=== PATIENT | female | born 1965 | race Caucasian/White ===

== ENCOUNTER 2022-02-18 10:54 | Emergency (ER) | payer MEDICAID, SELFPAY ==
[2022-02-18 11:04] VITALS: BP 112/67; PULSE 90; RESP 16; TEMP 36.6; O2SAT 98; BMI 20.2
--- NOTE | 2022-02-18 11:36 | XR_ITS ---
WS: [id number] Right wrist, 3 views, 02/18/2022 Clinical Data: fall, pAIN Comparison: None. Findings: There is a minimally impacted and dorsally displaced fracture of the distal right radius. The distal right ulna is intact. The carpal bones are normal. There is soft tissue swelling about the right wris t. XR/XR wrist RT min 3V* [id number] Impression: Fracture distal right radius.
--- NOTE | 2022-02-18 11:37 | W.ED.UPPEXIN ---
HPI - Extremity Injury (Upper) General: Chief Complaint: Extremity Injury, Upper Stated Complaint: right hand injury Time Seen by Provider: 02/18/22 11:24 Source: patient Mode of arrival: ambulatory Limitations: no limitations History of Present Illness: Patient is a 56-year-old female presents to ED today for evaluation of right wrist injury. Patient tells me earlier today she was on a log pile when one of the logs rolled causing her to fall backwards onto her right wrist and hand. Patient tells me she is having localized wrist tenderness. She denies any other injuries sustained during the fall. Patient denies striking her head or LOC. She has no neck or back pain. She has been ambulatory since the fall without difficulty. MD complaint: injury to: right and wrist Onset (ago): hour(s) Other Extremity Injury: Right: wrist Other injuries: none Place: home Severity: moderate Relieving factors: immobilization Exacerbating factors: movement of extremity Context: fall Associated symptoms: Reports no associated symptoms; Denies neck pain Review of Systems Musc: Reports: joint pain (R wrist); Denies: neck pain, back pain, extremity pain or extremity swelling Skin/Breast: Reports: other (denies abrasions/lacerations) Neuro: Denies: headache(s) Physical Exam Const: COMMON NORMALS: no acute distress, average body habitus, patient oriented x3, no limitations, healthy appearing, alert and well nourished Extremity: COMMON NORMALS: capillary refill normal GENERAL: Yes normal exam except as noted RIGHT UPPER EXTREMITY: Yes wrist Right wrist: Yes palpation (TTP distal radius), Yes ROM (limited secondary to pain) and Yes neurovascular exam (normal) Neuro: COMMON NORMALS: patient oriented x3 SENSORIUM/ORIENTATION: Yes alert Course Vital Signs: Vital signs: Vital Signs Temperature 97.8 F 02/18/22 11:04 Pulse Rate 90 02/18/22 11:04 Respiratory Rate 16 02/18/22 11:04 Blood Pressure 112/67 02/18/22 11:04 Pulse Oximetry 98 02/18/22 11:04 Oxygen Delivery Me thod 02/18/22 11:04 MDM - Extremity Injury (Upper) Medical Decision Making Patient with a distal radial fracture. NV intact. Will place in sugar tong splint and have her follow up with orthopedics. Return to ED precautions given. Discharge Plan Discharge Patient Disposition: Home Clinical Impression: Distal radial fracture Qualifiers: Encounter type: initial encounter Fracture type: closed Fracture morphology: unspecified fracture morphology Laterality: right Qualified Code(s): S52.501A - Unspecified fracture of the lower end of right radius, initial encounter for closed fracture Condition: Stable Prescriptions: New hydrocodone-acetaminophen 5-325 mg tablet 1 tab PO Q6H PRN (Reason: pain) Qty: 14 0RF Discharge Orders: Discharge ED (Routine); Ordered 02/18/22 Ordered By: Asya Klein Referrals: Camille Munroe DO [Primary Care Provider] - Patient Instructions: Wrist Fracture in Adults (ED), Opioid Safety, Pain Management Activity Restrictions/Additional Instructions: Case management should contact you shortly to set you up with your follow-up orthopedic appointment. Coding Level of Care Code ED Director Non Profit for Mathew Mckoy Exam Expanded Problem Focused
--- NOTE | 2022-02-18 14:16 | DCPLANNER ---
Addendum entered by Tammy Zavaleta 02/22/22 13:44: Patient had a follow up appointment scheduled with ortho - patient did attend appointment. Original Note: manager statistical programming had message to schedule a follow up appointment for patient with ortho. manager statistical programming sent patients information to the front office staff at ortho. Patients information will be printed and reviewed. Clinic will call patient with appointment information.
== END 2022-02-18 12:52 | disposition home or self-care (01) ==
PROVIDERS: Emergency Provider Physician Assistant; PCP Family Medicine
DX: S52.501A Unspecified fracture of the lower end of right radius, initial encounter for closed fracture (principal); W17.89XA Other fall from one level to another, initial encounter
CPT/HCPCS: 29125; 73110; 99283

== ENCOUNTER → 2022-02-20 13:21 | Outpatient (BNVA) | payer MEDICAID, SELFPAY | PROVIDERS: PCP Family Medicine; Referring Provider Physician Assistant; Visit Provider Specialist | DX: S52.571A Other intraarticular fracture of lower end of right radius, initial encounter for closed fracture (principal); X58.XXXA Exposure to other specified factors, initial encounter | CPT/HCPCS: 73110 ==

== ENCOUNTER 2022-02-20 14:52 | Outpatient (CLI) | payer MEDICAID, SELFPAY | END 2022-02-20 14:53 | disposition home or self-care (01) | LOC: SPT 14:53 | PROVIDERS: PCP Family Medicine; Visit Provider Specialist | DX: Z46.89 Encounter for fitting and adjustment of other specified devices (principal); S52.591D Other fractures of lower end of right radius, subsequent encounter for closed fracture with routine healing; X58.XXXD Exposure to other specified factors, subsequent encounter | CPT/HCPCS: 97760; L3982 ==

== ENCOUNTER → 2022-02-27 08:41 | Outpatient (BNVA) | payer MEDICAID, SELFPAY | PROVIDERS: PCP Family Medicine; Visit Provider Specialist | DX: S52.501A Unspecified fracture of the lower end of right radius, initial encounter for closed fracture (principal); W17.89XA Other fall from one level to another, initial encounter | CPT/HCPCS: 73110 ==

== ENCOUNTER → 2022-03-13 10:23 | Outpatient (BNVA) | payer MEDICAID, SELFPAY | PROVIDERS: PCP Family Medicine; Visit Provider Nurse Practitioner Family | DX: S52.501A Unspecified fracture of the lower end of right radius, initial encounter for closed fracture (principal); W17.89XA Other fall from one level to another, initial encounter | CPT/HCPCS: 73110 ==

== ENCOUNTER → 2022-04-02 11:04 | Outpatient (BNVA) | payer MEDICAID, SELFPAY | PROVIDERS: PCP Family Medicine; Visit Provider Nurse Practitioner Family | DX: S52.501A Unspecified fracture of the lower end of right radius, initial encounter for closed fracture (principal); W17.89XA Other fall from one level to another, initial encounter | CPT/HCPCS: 73110 ==

== ENCOUNTER → 2022-04-17 14:11 | Outpatient (BNVA) | payer MEDICAID, SELFPAY | PROVIDERS: PCP Family Medicine; Visit Provider Nurse Practitioner Family | DX: S52.501A Unspecified fracture of the lower end of right radius, initial encounter for closed fracture (principal); W17.89XA Other fall from one level to another, initial encounter | CPT/HCPCS: 73110 ==